=== PATIENT | female | born 1975 | race Two or more races ===

== ENCOUNTER → 2016-12-17 | Outpatient (CLI) | payer OTHER ==
--- NOTE | 2016-12-17 15:27 | KCIC ---
Exam performed: Pelvic ultrasound. Indication: Pelvic pain. Date of Service: 12/17/2016. Comparison: None available Technique: Transvaginal Findings: The uterus measures 10.1 x 6.2 x 5.1 cm. The endometrial stripe measures 9.8 mm. Bilateral ovaries are normal. The right ovary measures 2.1 x 2.6 x 2.0 cm.The left ovary measures 2.6 x 3.2 x 1.7 cm . Symmetric vascularity to both ovaries. There is a 2.1 x 1.3 x 1.5 cm right ovarian cyst. There is small amount of free fluid in the posterior cul-de-sac. Impression: 1. Essentially unremarkable pelvic sonogram. Electronically signed by: Mary Ann Guaman MD (12/17/2016 3:25 PM) [place] [id number]
== END | disposition home or self-care (01) ==
LOC: KCIC US 14:21
PROVIDERS: ATTEND Family Medicine
DX: N83.201 Unspecified ovarian cyst, right side (principal)
CPT/HCPCS: 76830; 76856